=== PATIENT | male | born 1985 | race Caucasian/White ===

== ENCOUNTER 2017-05-10 15:04 | Emergency (ER) | payer OTHER ==
[~2017-05-10] VITALS: Ht 195.6 cm; Wt 104.3 kg
[2017-05-10] MEDS ORDERED: ONDANSETRON HCL/PF 4 MG/2 ML VIAL ONE (15:07)
[2017-05-10] MEDS ORDERED: MORPHINE SULFATE INJ 4 MG/ML DISP.SYRIN ONE ×3 (15:07→18:37)
[2017-05-10] MEDS ORDERED: TDAP [DIPH/PERTUSSIS/TET] 0.5 ML VIAL IM ONE ×2 (15:19→15:30)
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
[2017-05-10 15:35] LABS: BASOPHILS % (AUTO) 0.2 % (0.0-2.0); EOSINOPHILS # (AUTO) 0.1 /CMM (0.0-0.7); EOSINOPHILS % (AUTO) 1.2 % (0.0-6.0); HEMATOCRIT 41 % (39-51); HEMOGLOBIN 14.3 g/dL (13.5-17.5); LYMPHOCYTES % (AUTO) 32.8 % (20.0-44.0); MEAN CORPUSCULAR HEMOGLOBIN 31 PG (26.0-33.0); MEAN CORPUSCULAR HGB CONC 35 g/dl (31.0-36.0); MEAN CORPUSCULAR VOLUME 88 fL (80-96); MONOCYTES # (AUTO) 0.4 /CMM (0.1-1.30); MONOCYTES % (AUTO) 4.4 % (2.0-12.0); NEUTROPHILS # (AUTO) 5.5 /CMM (1.8-8.9); NEUTROPHILS % (AUTO) 61.4 % (43.0-81.0); PLATELET COUNT (AUTO) 206 /CMM (150-450); RDW COEFFICIENT OF VARIATION 11.9 (11.5-15.0); RED BLOOD CELL COUNT(AUTO) 4.69 MIL/uL (4.5-6.0)
[2017-05-10 15:39] LABS: CALCIUM, SERUM 8.7 mg/dL (8.5-10.1); CREATININE 1.4 mg/dL (0.6-1.3); POTASSIUM 3.6 mmol/L (3.5-5.1)
--- NOTE | 2017-05-10 15:40 | NUR ---
FINISH INSPECTOR AT BEDSIDE.
[2017-05-10 15:45] LABS: ALBUMIN 3.7 g/dL (3.4-5.0); BILIRUBIN,TOTAL 0.3 mg/dL (0.2-1.0); TOTAL PROTEIN, SERUM 7.7 g/dL (6.4-8.2)
--- NOTE | 2017-05-10 15:48 | NUR ---
PATIENT IN SEVERE PAIN, MD INFORMED ORDERED 4MG MORPHINE.
[2017-05-10] MEDS ORDERED: IOHEXOL-300 100 ML VIAL IV ONE (16:11)
[2017-05-10] MEDS ORDERED: IV NS 0.9% 250 ML IV ONE (16:12)
--- NOTE | 2017-05-10 16:18 | NUR ---
PATIENT TAKEN TO CT VIA STRETCHER.
[2017-05-10] MEDS ORDERED: MORPHINE SULFATE INJ 2 MG/ML DISP.SYRIN IV ONE ×2 (16:30→19:00)
--- NOTE | 2017-05-10 16:31 | NUR ---
PATIENT RETURNED FROM CT.
--- NOTE | 2017-05-10 17:46 | NUR ---
COPY LATHE OPERATOR AT BEDSIDE FOR R ARM
--- NOTE | 2017-05-10 18:40 | NUR ---
PATIENT ONCE AGAIN IN SEVERE PAIN, MD INFORMED AND ORDERED MORPHINE 4MG IV ONCE AGAIN. GIVEN ON RAC, 18 G, IVP, 11/22 LOW BACK PAIN.
[2017-05-10 19:16] VITALS: BP 132/61
--- NOTE | 2017-05-10 19:18 | NUR ---
IV removed. Catheter intact and site benign. Pressure and 4x4 applied to site. No bleeding noted. Patient discharged to home in stable condition. Written and verbal after care instructions given. Patient verbalizes understanding of instruction.
== END 2017-05-10 19:17 | disposition home or self-care (01) ==
LOC: ER 15:07
DX: S32.10XA Unspecified fracture of sacrum, initial encounter for closed fracture (principal); S62.102A Fracture of unspecified carpal bone, left wrist, initial encounter for closed fracture; S63.501A Unspecified sprain of right wrist, initial encounter; V49.69XA Unspecified car occupant injured in collision with other motor vehicles in traffic accident, initial encounter; Y93.89 Activity, other specified; Y92.89 Other specified places as the place of occurrence of the external cause; Y99.8 Other external cause status
CPT/HCPCS: 36415; 71045-TC; 73090-TC; 73110; 80053-TC; 83690-TC; 85025-TC; 90715; A4606; J2270; J2405; J7050; Q9967; Z7610